=== PATIENT | female | born 1960 | race American Indian/Alaskan Native ===

== ENCOUNTER 2021-03-21 17:28 | Emergency (ER) | payer OTHER ==
[2021-03-21 18:04] VITALS: BP 178/106; PULSE 70
[2021-03-21] MEDS ORDERED: Acetaminophen 325 MG Tab PO ONE (18:46)
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
== END 2021-03-21 20:39 | disposition home or self-care (01) ==
LOC: DL.ED 17:28
DX: S06.0X0A Concussion without loss of consciousness, initial encounter (principal); I10 Essential (primary) hypertension; Z72.0 Tobacco use; Z88.0 Allergy status to penicillin; W22.09XA Striking against other stationary object, initial encounter
CPT/HCPCS: 70450; 99284; A9270

== ENCOUNTER 2021-09-02 21:09 | Emergency (ER) | payer OTHER ==
[2021-09-02 22:36] LABS: AMPHETAMINES,URINE NEGATIVE (NEGATIVE); BARBITURATES,URINE NEGATIVE (NEGATIVE); BENZODIAZEPINE,URINE NEGATIVE (NEGATIVE); MDMA (ECSTASY), URINE NEGATIVE (NEGATIVE); METHADONE,URINE NEGATIVE (NEGATIVE); METHAMPHETAMINES,URINE NEGATIVE (NEGATIVE); OPIATES,URINE NEGATIVE (NEGATIVE); OXYCODONE,URINE NEGATIVE (NEGATIVE); PHENCYCLIDINE,URINE NEGATIVE (NEGATIVE); TCA,URINE NEGATIVE (NEGATIVE)
[2021-09-02 23:02] LABS: ANION GAP 13.5 mEq/L (7-13); CHLORIDE,CL 102 mmol/L (98-107); SODIUM,NA 139 mmol/L (136-145)
[2021-09-02] MEDS ORDERED: Nitrofurantoin Monohydrate/Macrocrystalline 100 MG Cap PO ONE (23:07)
[2021-09-02 23:13] VITALS: BP 123/67; PULSE 54
== END 2021-09-02 23:26 | disposition home or self-care (01) ==
LOC: DL.ED 21:09
DX: N30.01 Acute cystitis with hematuria (principal); I10 Essential (primary) hypertension; E03.9 Hypothyroidism, unspecified; R94.6 Abnormal results of thyroid function studies; Z88.0 Allergy status to penicillin; Z91.19 Patient's noncompliance with other medical treatment and regimen
CPT/HCPCS: 36415; 80053; 80305; 80307; 81001; 82150; 83605; 83690; 83735; 84443; 85025; 86140; 87086; 99284; A9270

== ENCOUNTER 2022-08-12 19:59 | Emergency (ER) | payer OTHER ==
[2022-08-12 21:55] VITALS: BP 176/94; PULSE 68
[2022-08-12 21:58] LABS: CORONAVIRUS COVID-19 NAA NEGATIVE (NEGATIVE); RESPIRATORY SYNCYTIAL VIR NAA NEGATIVE (NEGATIVE)
[2022-08-12] MEDS ORDERED: Sodium Chloride 0.9% 1,000 ML IV ONE (23:11)
[2022-08-12] MEDS ORDERED: Sodium Chloride 0.9% 10 ML Syringe FLUSH PRN (23:11)
[2022-08-12 23:57] LABS: PTT,PARTIAL THROMBOPLSTIN TIME 29.3 SEC (22.0-34.0)
[2022-08-13 00:05] LABS: ANION GAP 16.1 mEq/L (7-13); CHLORIDE,CL 103 mmol/L (98-107); SODIUM,NA 140 mmol/L (136-145)
[2022-08-13 00:12] LABS: ESTIMATED GFR 63 mL/min (>=60)
[2022-08-13] MEDS ORDERED: diphenhydrAMINE 50 MG/ML SDV IVPUSH ONE (00:25)
[2022-08-13] MEDS ORDERED: Ketorolac 30 MG/ML SDV IVPUSH ONE (00:25)
[2022-08-13] MEDS ORDERED: Metoclopramide 10 MG/2 ML SDV IVPUSH ONE (00:25)
== END 2022-08-13 01:11 | disposition home or self-care (01) ==
LOC: DL.ED 19:59
DX: R10.10 Upper abdominal pain, unspecified (principal); R51.9 Headache, unspecified; I10 Essential (primary) hypertension; E03.9 Hypothyroidism, unspecified; Z88.1 Allergy status to other antibiotic agents; Z72.0 Tobacco use; Z20.822 Contact with and (suspected) exposure to COVID-19
CPT/HCPCS: 0241U; 36415; 80053; 81001; 82150; 83605; 83690; 84145; 84443; 85025; 85610; 85651; 85730; 86140; 96361; 96374; 96375; 99284; J1200; J1885; J2765; J3490; J7030; 99283

== ENCOUNTER 2023-10-04 17:58 | Emergency (ER) | payer MEDICAID ==
[2023-10-04 18:40] VITALS: BP 126/82; PULSE 73
== END 2023-10-04 19:24 | disposition left against medical advice (07) ==
LOC: DL.ED 17:58
DX: Z53.21 Procedure and treatment not carried out due to patient leaving prior to being seen by health care provider (principal)
CPT/HCPCS: 93005